=== PATIENT | male | born 1985 | race Caucasian/White ===

== ENCOUNTER 2020-10-22 19:10 | Emergency (ER) | payer BC ==
[2020-10-22] MEDS ORDERED: Aspirin 81 MG Tab.Chew PO ONE (19:28)
--- NOTE | 2020-10-22 20:03 | CR ---
Indication: Shortness of breath. Chest pain. Technique: AP portable view of the chest. Comparison: None Findings: Heart is normal in size. The lungs are clear. No infiltrate, pleural effusion, or pneumothorax is identified. Impression: No acute cardiopulmonary process Dictated by Gali Santoyo MD @ Oct 22 2020 7:55PM Signed by Dr. Gali Santoyo @ Oct 22 2020 8:01PM
[2020-10-22 20:18] LABS: BLOOD UREA NITROGEN,BUN 20 mg/dL (7.0-18.0); CARBON DIOXIDE,CO2 24.3 mmol/L (21.0-32.0); CHLORIDE,CL 102 mmol/L (98-107); GLUCOSE RANDOM 119 mg/dL (74-106); POTASSIUM,K 3.6 mmol/L (3.5-5.1); SODIUM,NA 139 mmol/L (136-148)
--- NOTE | 2020-10-22 20:31 | EDM.PDOC ---
ED HPI GENERAL MEDICAL PROBLEM - General Chief Complaint: Chest Pain Stated Complaint: CHEST PAIN Time Seen by Provider: 10/22/20 19:12 - History of Present Illness INITIAL COMMENTS - FREE TEXT/NARRATIVE: CHIEF COMPLAINT(S): "I suddenly could not catch my breath " HISTORY OF PRESENT ILLNESS: This is a 35-year-old man with a past medical history of Covid approximately 4 to 5 weeks ago who comes to the emergency department with a chief complaint of "I suddenly cannot catch my breath." The patient states that he was sitting at his house and lying down when he suddenly could not catch his breath. He states that it just felt like he could not take a full breath. He states that at time he also felt some left-sided sharp chest pain rated 7-8 out of 10 associated with shortness of breath and nausea but denied any diaphoresis or vomiting. He states that he went outside to the cold air but that did not seem to help his situation. He denies any numbness, tingling, weakness, or headache. He states that when this happened his ears got red. He states that this all started around 3 PM when he had similar symptoms. He denies any syncope, history of CAD or CHF. He denies any recent travel or recent surgery or prior history of DVT or PE. He does not know his family history given that he is adopted. Of note: He had a earache on the left side last night which he took ibuprofen and it improved. He denies any fevers or chills or cough. REVIEW OF SYSTEMS: Constitutional: Denies fever, chills. Eyes: Denies eye pain Ears, Nose, Mouth, & Throat: Positive for left-sided earache Cardiovascular: Positive for left-sided chest pain Respiratory: Positive for shortness of breath. Denies cough Gastrointestinal: Positive for nausea. Denies vomiting, diarrhea, hematochezia Genitourinary: Denies hematuria Skin:Denies a rash MSK: Denies joint pain Neurological: Denies blurred vision, numbness, tingling, weakness Psychiatric: Denies depression PAST MEDICAL HISTORY: As per history of present illness and as reviewed below otherwise noncontributory. SURGICAL HISTORY: As per history of present illness and as reviewed below otherwise noncontributory. SOCIAL HISTORY: As per history of present illness and as reviewed below otherwise noncontributory. FAMILY HISTORY: As per history of present illness and as reviewed below otherwise noncontributory. EXAMINATION OF ORGAN SYSTEMS/BODY AREAS: Constitutional: Blood pressure was 155/77, heart rate 104, respiratory rate 18 with an oxygen saturation of 97% on room air. Temperature 36.6 General: Young man who does not appear to be in acute distress Psychiatric: Appears anxious but appropriate mood Eyes: No scleral icterus or conjunctival erythema pupils are equal round reactive to light. ENMT: Moist mucous membranes. No pharyngeal erythema no tonsillar exudates or swelling. Bilateral tympanic membranes without any bulging or erythema. Bilateral nasal turbinates are clear without any drainage. Cardiovascular: Tachycardic but regular. No gallops, murmurs, or rubs. Bilateral upper extremity pulses symmetric and intact. No peripheral edema. No JVD. Respiratory: Lungs clear to auscultation bilaterally. No wheezes, rales, or rhonchi. Gastrointestinal: Soft, non-tender, non-distended. Normoactive bowel sounds Genitourinary: No suprapubic tenderness Musculoskeletal: Normal range of motion. Skin: No lesions or abrasions. Neurological: Alert, GCS 15 strength and sensation grossly intact in upper and lower extremities bilaterally. MEDICAL DECISION MAKING AND COURSE IN THE ED WITH INTERPRETATION/REVIEW OF DIAGNOSTIC STUDIES: This is a 35-year-old man and with a recent Covid 19 and 5 who comes to the emergency department with acute dyspnea with left-sided chest pain who is mildly tachycardic. Given that the patient had Covid the patient is at increased risk for PE. We will obtain a D-dimer. I did obtain an EKG which did not reveal any acute signs of ischemia. Given his duration of symptoms we will obtain 1 troponin. Patient is low risk for both pulmonary embolism and ACS. Will obtain a chest x-ray. We will provide the patient with aspirin by mouth and reevaluate. Laboratory: CBC reveals a leukocytosis of 11.75 which is just above normal. D- dimer is negative. Coags are within normal limits. BMP is unremarkable. Magnesium is normal at 1.9. Troponin is negative. Time: 1906 Twelve-lead EKG interpreted by myself. Normal sinus rhythm at a rate of 96 beats per minute. Left axis. OK interval is 154 ms. QRS duration is [address] segments are normal without elevations or depressions. No T wave inversions no Q waves present. Hypertrophy not noted. No prior EKGs in our system. Interpretation: Normal sinus rhythm The radiological images were viewed by myself along with reading the report from the radiologist. Chest x-ray does not reveal any acute cardiopulmonary process. At this time the patient's work-up was negative. I did discuss the results with the patient. I did discuss with him at this time it is uncertain as what is causing his chest pain or shortness of breath however I do believe there is a degree of anxiety and panic attack given his flushed ears and hot sensation. I recommended he follow-up with his primary care physician for further evaluation. He is to return for any new or worsening symptoms. DISPOSITION: The patient was discharged home in stable condition. The patient will follow up with primary care physician within 1 CONDITION: Fair PROCEDURES: None FINAL IMPRESSION(S)/DIAGNOSES: 1. Acute chest pain 2. Acute dyspnea Nathan Lopez M.D. chest pain Pain Score (Numeric/FACES): 5 - Related Data Allergies Allergy/AdvReac Type Severity Reaction Status Date / Time No Known Allergies Allergy Verified 10/22/20 19:12 Home Meds: Home Meds . [No Known Home Meds] 10/22/20 [History] Past Medical History HEENT History: Reports: None Cardiovascular History: Reports: None Respiratory History: Reports: None Gastrointestinal History: Reports: None Genitourinary History: Reports: None Musculoskeletal History: Reports: None Neurological History: Reports: None Psychiatric History: Reports: None Endocrine/Metabolic History: Reports: None Insulin Pump Model and Framing Specialist: None Hematologic History: Reports: None Immunologic History: Reports: None Oncologic (Cancer) History: Reports: None Dermatologic History: Reports: None - Infectious Disease History Infectious Disease History: Reports: None - Past Surgical History Head Surgeries/Procedures: Reports: None Social & Family History - Caffeine Use Caffeine Use: Reports: Coffee, Energy Drinks, Soda, Tea - Recreational Drug Use Recreational Drug Use: No ED ROS GENERAL - Review of Systems Review Of Systems: See Below ED EXAM, GENERAL - Physical Exam Exam: See Below Course - Vital Signs Last Recorded V/S: Last Vital Signs Temp 36.6 C 10/22/20 19:10 Pulse 108 H 10/22/20 21:08 Resp 20 10/22/20 21:08 BP 144/99 H 10/22/20 21:08 Pulse Ox 99 10/22/20 21:08 - Orders/Labs/Meds Labs: Laboratory Tests 10/22/20 10/22/20 10/22/20 Range/Units 19:40 19:40 19:40 WBC 11.75 H (4.0-11.0) K/uL RBC 4.87 (4.50-5.90) M/uL Hgb 15.5 (13.0-17.0) g/dL Hct 44.7 (38.0-50.0) % MCV 91.8 (80.0-98.0) fL MCH 31.8 (27.0-32.0) pg MCHC 34.7 (31.0-37.0) g/dL RDW Std Deviation 41.6 (28.0-62.0) fl RDW Coeff of [place] 12 (11.0-15.0) % Plt Count 265 (150-400) K/uL MPV 9.70 (7.40-12.00) fL Neut % (Auto) 71.0 (48.0-80.0) % Lymph % (Auto) 20.3 (16.0-40.0) % [place] % (Auto) 7.6 (0.0-15.0) % Eos % (Auto) 0.8 (0.0-7.0) % Baso % (Auto) 0.3 (0.0-1.5) % Neut # (Auto) 8.4 H (1.4-5.7) K/uL Lymph # (Auto) 2.4 (0.6-2.4) K/uL [place] # (Auto) 0.9 H (0.0-0.8) K/uL Eos # (Auto) 0.1 (0.0-0.7) K/uL Baso # (Auto) 0.0 (0.0-0.1) K/uL Nucleated RBC % 0.0 /100WBC Nucleated RBCs # 0 K/uL INR 1.09 D-Dimer, Quantitative (0.0-0.50) mg/L FEU Sodium 139 (136-148) mmol/L Potassium 3.6 (3.5-5.1) mmol/L Chloride 102 (98-107) mmol/L Carbon Dioxide 24.3 (21.0-32.0) mmol/L BUN 20 H (7.0-18.0) mg/dL Creatinine 1.0 (0.8-1.3) mg/dL Est Cr Clr Drug Dosing 109.81 mL/min Estimated GFR (MDRD) > 60.0 ml/min Glucose 119 H (74-106) mg/dL Calcium 9.4 (8.5-10.1) mg/dL Magnesium 1.9 (1.8-2.4) mg/dL Troponin I < 0.050 (0.000-0.056) ng/mL 10/22/20 Range/Units 19:40 WBC (4.0-11.0) K/uL RBC (4.50-5.90) M/uL Hgb (13.0-17.0) g/dL Hct (38.0-50.0) % MCV (80.0-98.0) fL MCH (27.0-32.0) pg MCHC (31.0-37.0) g/dL RDW Std Deviation (28.0-62.0) fl RDW Coeff of [place] (11.0-15.0) % Plt Count (150-400) K/uL MPV (7.40-12.00) fL Neut % (Auto) (48.0-80.0) % Lymph % (Auto) (16.0-40.0) % [place] % (Auto) (0.0-15.0) % Eos % (Auto) (0.0-7.0) % Baso % (Auto) (0.0-1.5) % Neut # (Auto) (1.4-5.7) K/uL Lymph # (Auto) (0.6-2.4) K/uL [place] # (Auto) (0.0-0.8) K/uL Eos # (Auto) (0.0-0.7) K/uL Baso # (Auto) (0.0-0.1) K/uL Nucleated RBC % /100WBC Nucleated RBCs # K/uL INR D-Dimer, Quantitative 0.27 (0.0-0.50) mg/L FEU Sodium (136-148) mmol/L Potassium (3.5-5.1) mmol/L Chloride (98-107) mmol/L Carbon Dioxide (21.0-32.0) mmol/L BUN (7.0-18.0) mg/dL Creatinine (0.8-1.3) mg/dL Est Cr Clr Drug Dosing mL/min Estimated GFR (MDRD) ml/min Glucose (74-106) mg/dL Calcium (8.5-10.1) mg/dL Magnesium (1.8-2.4) mg/dL Troponin I (0.000-0.056) ng/mL Meds: Medications Discontinued Medications Generic Name Dose Route Start Last Admin Trade Name Josselyn PRN Reason Stop Dose Admin Aspirin 324 mg 10/22/20 19:28 10/22/20 19:54 Aspirin PO 10/22/20 19:29 324 mg ONETIME ONE Administration Departure - Departure Time of Disposition: 20:48 Disposition: Home, Self-Care 01 Condition: Fair Clinical Impression: Atypical chest pain, Dyspnea - Discharge Information *PRESCRIPTION DRUG MONITORING PROGRAM REVIEWED*: No *COPY OF PRESCRIPTION DRUG MONITORING REPORT IN PATIENT ALBERT: No Instructions: Shortness of Breath, Adult, [id number], Nonspecific Chest Pain, Adult, [id number] Forms: ED Department Discharge Additional Instructions: You evaluate today on an emergent basis. At this time your work-up was negative. Your x-ray and labs were all normal. We did perform a lab to look for possible blood clot in your lung and that was also negative. At this time it is uncertain as to what is causing your chest pain or shortness of breath however there could be a degree of anxiety/panic attack. I recommend follow-up with your primary care physician for further evaluation and monitoring. If you have any worsening chest pain or shortness of breath or you pass out please return to the emergency department. [facility] - [facility] [address] [place] [address] [id number] [address] [id number] The patient is informed of any results of their evaluation and diagnostic workup and all questions are answered. They are given discharge instructions and return precautions. The patient is stable for discharge. The patient states they understand and agree with the plan and that they will return if their symptoms get worse or if they have any new concerns. The following information is given to patients seen in the emergency department who are being discharged to home. This information is to outline your options for follow-up care. We provide all patients seen in our emergency department with a follow-up referral. The need for follow-up, as well as the timing and circumstances, are variable depending upon the specifics of your emergency department visit. If you don't have a primary care physician on staff, we will provide you with a referral. We always advise you to contact your personal physician following an emergency department visit to inform them of the circumstance of the visit and for follow-up with them and/or the need for any referrals to a consulting specialist. The emergency department will also refer you to a specialist when appropriate. This referral assures that you have the opportunity for follow-up care with a specialist. All of these measure are taken in an effort to provide you with optimal care, which includes your follow-up. Under all circumstances we always encourage you to contact your private physician who remains a resource for coordinating your care. When calling for follow-up care, please make the office aware that this follow-up is from your recent emergency room visit. If for any reason you are refused follow-up, please contact the [facility] Emergency Department at and asked to speak to the emergency department charge nurse. Sepsis Event Note (ED) - Evaluation Sepsis Screening Result: No Definite Risk
== END 2020-10-22 21:01 | disposition home or self-care (01) ==
LOC: MW.ED 19:10
DX: R07.89 Other chest pain (principal); R06.00 Dyspnea, unspecified; R11.0 Nausea; H92.02 Otalgia, left ear
CPT/HCPCS: 36415; 71045; 80048; 83735; 84484; 85025; 85379; 85610; 93005; 99285; A9270; 93010; 99284